=== PATIENT | male | born 1940 | race Caucasian/White ===

== ENCOUNTER 2017-08-19 13:58 | Emergency (ER) | payer MEDICARE ==
[~2017-08-19] VITALS: Ht 172.7 cm; Wt 81.6 kg
[~2017-08-19 13:58] MED LIST: ACHYD1T PO; ATOR80TA2 PO; CEFU800T34 PO; CPR500T PO; HYDR25TA4 PO; METO50TA2 PO; OMEG1CAP51 PO; PHEN100T26 PO; TOLTA4 PO; TOPI50TA2 PO
--- OUTSIDE RECORDS SUMMARY | 2017-08-19 14:15 | XMS REPORT ---
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 [id number] ALLERGIES No Known Allergies SOCIAL HISTORY Never Assessed PLAN OF CARE Activity Details Follow Up 6 Months Reason:Recall VITAL SIGNS Heart Rate 90 bpm 2016-07-19 Blood pressure systolic 135 mmHg 2016-07-19 Blood pressure diastolic 79 mmHg 2016-07-19 MEDICATIONS No Known Medications RESULTS No Results PROCEDURES Procedure Date Ordered Result Body Site PERIODIC ORAL EXAMINATION July 19, 2016 INTRAORL-PERIAPICAL 1 FILM 05783 July 19, 2016 TOPICAL FLUORIDE VARNISH July 19, 2016 PROPHYLAXIS - ADULT July 19, 2016 INTRAORL-PERIAPICAL EA ADD FILM July 19, 2016 INTRAORL-PERIAPICAL EA ADD FILM July 19, 2016 INTRAORL-PERIAPICAL EA ADD FILM July 19, 2016 INTRAORL-PERIAPICAL EA ADD FILM July 19, 2016 IMMUNIZATIONS No Known Immunizations MEDICAL (GENERAL) HISTORY Type Description Date Medical History Cancer Medical History Pneumonia Surgical History 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
--- OUTSIDE RECORDS SUMMARY | 2017-08-19 14:15 | XMS REPORT ---
Author Author MARY POTTER Organization [employer] Address Unknown Phone Unavailable Care Team Providers Care Electronic Assembly Name Role Phone MARY POTTER CP Unavailable Allergies, Adverse Reactions, Alerts Substance Reaction Event Type N.K.D.A. 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 Problem Urinary tract infection, site not specified 599.0 Active Problem Encounter for dental examination Z01.20 Active Assessment Dental examination Z01.20 Active Medications No Known Medications Procedures Procedure Coding System Code Date APPLICATION DESENZT MEDICAMENT CPT-4 D9910 Mar 16, 2015 INTRAORL-PERIAPICAL 1 FILM 66868 CPT-4 D0220 Mar 16, 2015 LTD ORAL EVALUATION - PROBLEM FOCUS CPT-4 D0140 Mar 16, 2015 BITEWING - SINGLE FILM CPT-4 D0270 Mar 16, 2015 Vital Signs Date/Time: Mar 16, 2015 Blood Pressure Diastolic 72 mmHg Blood Pressure Systolic 120 mmHg Results No Known Results Summary Purpose [employer] Submission
--- OUTSIDE RECORDS SUMMARY | 2017-08-19 14:15 | XMS REPORT ---
Author Author JACQUELINE MARTINEZ [facility] [employer] Address Unknown Phone Unavailable Care Team Providers Care Picking Supervisor Name Role Phone JACQUELINE MARTINEZ CP Unavailable Allergies, Adverse Reactions, Alerts Substance Reaction Event Type N.K.D.A. 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 Problem Urinary tract infection, site not specified 599.0 Active Problem Encounter for dental examination Z01.20 Active Assessment Encounter for dental examination Z01.20 Active Medications Medication Code System Code Instructions Start Date End Date Status Dosage halobetasol topical NDC 0 0.05 % August 13, 2013 1 ivanna by Topical route 2 times per day for 10 day(s) Cipro NDC [address]-26 500 mg November 04, 2012 1 tablet by Oral route every 12 hours for 10 day(s) Procedures Procedure Coding System Code Date BITEWINGS - TWO FILMS CPT-4 D0272 Mar 16, 2015 PROPHYLAXIS - ADULT CPT-4 D1110 Mar 16, 2015 COMP ORAL EVALUATION - NEW/EST PT CPT-4 D0150 Mar 16, 2015 Results No Known Results Summary Purpose [employer] Submission
--- OUTSIDE RECORDS SUMMARY | 2017-08-19 14:16 | XMS REPORT ---
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 Unknown Non Drug Allergy May, Unknown SOCIAL HISTORY No smoking Hx information available PLAN OF CARE Activity Details Follow Up prn Reason:Restorative VITAL SIGNS Height 69 in 2016-05-25 Blood pressure systolic 142 mmHg 2016-05-25 Blood pressure diastolic 81 mmHg 2016-05-25 MEDICATIONS Unknown Medications RESULTS No Results PROCEDURES Procedure Date Ordered Related Diagnosis Body Site LTD ORAL EVALUATION - PROBLEM FOCUS May 25, 2016 INTRAORL-PERIAPICAL 1 FILM 13163 May 25, 2016 IMMUNIZATIONS No Known Immunizations
--- OUTSIDE RECORDS SUMMARY | 2017-08-19 14:16 | XMS REPORT | Continuity of Care Document ---
Author Author [facility] Address Unknown Phone Unavailable Allergies Active Description Code Type Severity Reaction Onset Reported/Identified Relationship to Patient Clinical Status Yes No Known Drug Allergies [id number] Drug Allergy Unknown N/A 11/11/2012 Medications There is no data. Problems Date Dx Coded Attending Type Code Diagnosis Diagnosed By 07/12/2010 465.9 UPPER RESPIRATORY INFECTION 07/12/2010 466.0 BRONCHITIS, ACUTE 07/12/2010 CHIRSTA MANDEL APRN R 465.9 UPPER RESPIRATORY INFECTION 07/12/2010 CHRISTA MANDEL APRN R 466.0 BRONCHITIS, ACUTE 08/23/2010 692.9 CONTACT DERMATITIS AND OTHER ECZEMA UNSPECIFIED CAUSE 08/23/2010 698.9 PRURITUS NOS 08/23/2010 CHRISTA MANDEL APRN R 692.9 CONTACT DERMATITIS AND OTHER ECZEMA UNSPECIFIED CAUSE 08/23/2010 KATHRINE MANDEL APRNINA R 698.9 PRURITUS NOS 03/14/2011 401.1 BENIGN ESSENTIAL HYPERTENSION 03/14/2011 782.1 RASH AND OTHER NONSPECIFIC SKIN ERUPTION 03/14/2011 CHRISTA MANDEL APRN R 401.1 BENIGN ESSENTIAL HYPERTENSION 03/14/2011 KATHRINE MANDEL APRNINA R 782.1 RASH AND OTHER NONSPECIFIC SKIN ERUPTION 11/04/2012 599.0 URINARY TRACT INFECTION SITE NOT SPECIFIED 11/04/2012 CHRISTA MANDEL APRN R 599.0 URINARY TRACT INFECTION SITE NOT SPECIFIED 11/15/2012 JAMES NEVAREZ, IRASEMA Da Silva Ot 276.8 11/15/2012 JAMES NEVAREZ, IRASEMA Da Silva Ot 300.00 11/15/2012 JAMES NEVAREZ, IRASEMA Da Silva Ot 584.9 11/15/2012 JAMES NEVAREZ, IRASEMA Da Silva Ot 595.9 11/15/2012 JAMES NEVAREZ, IRASEMA Da Silva Ot V10.46 08/13/2013 CHRISTA MANDEL APRN R 708.0 ALLERGIC URTICARIA 06/17/2014 JOHN NEVAREZ, JEFFERSON Celis Ot 389.9 06/17/2014 JOHN NEVAREZ, JEFFERSON Celis Ot 716.90 06/17/2014 JOHN NEVAREZ, JEFFERSON S Ot 805.2 06/17/2014 JOHN NEVAREZ, JEFFERSON S Ot 805.4 06/17/2014 JOHN NEVAREZ, JEFFERSON S Ot 873.0 06/17/2014 JOHN NEVAREZ, JEFFERSON S Ot 959.01 06/17/2014 JOHN NEVAREZ, JEFFERSON S Ot E849.0 06/17/2014 JOHN NEVAREZ, JEFFERSON S Ot E884.9 06/17/2014 JOHN NEVAREZ, JEFFERSON S Ot V10.46 06/17/2014 JOHN NEVAREZ, JEFFERSON S Ot V45.77 Procedures Code [place] [address] UA LONG DIP 11/04/2012 Results There is no data. Encounters ACCT No. Visit Date/Time Discharge Status Pt. Type Provider Facility Loc./Unit Complaint [id number] 08/13/2013 09:59:00 08/13/2013 23:59:59 CLS Outpatient CHRISTA MANDEL APRN [id number] 11/04/2012 10:58:00 Document Registration [id number] 01/30/2017 09:10:00 01/30/2017 23:59:59 CLS Outpatient KRISHNA EDWARDS [facility] [id number] 06/15/2014 11:37:00 06/17/2014 15:14:00 DIS Inpatient JOHN NEVAREZ, JEFFERSON Celis [facility] [id number] 11/11/2012 13:07:00 11/15/2012 12:50:00 DIS Inpatient JAMES NEVAREZ, IRASEMA Da Silva [address]
[2017-08-19 14:18] VITALS: BP 159/83
[2017-08-19] MEDS ORDERED: NS IV 500 ML 500 ML IV ONE (14:20)
--- NOTE | 2017-08-19 14:43 | ED Neurological Problem ---
General Chief Complaint: General Problems/Pain Stated Complaint: LOW BP Nursing Triage Note: patient presented via private vehicle today with complaints of low blood pressure and generalized weakness. Pt. family advises the last known well time for the patient was last night. Nursing Sepsis Screen: No Definite Risk Source: patient, family, EMS Exam Limitations: no limitations History of Present Illness Date Seen by Provider: Aug 19, 2017 Time Seen by Provider: 14:20 Initial Comments Here with family who report that he is not acting her today. Apparently had low blood pressure this morning. Normally has hypertension. Last known well time was last night. He was confused when he woke up this morning. No report of any injury or recent illness. Apparently he was fine last night. Patient admits to not feeling well but is otherwise not very helpful in the history. Timing/Duration: other (10 p.m. last night last known well time.) Severity: moderate Associated Symptoms: confusion, No fever/chills, No nausea/vomiting, No slurred speech, weakness Allergies and Home Medications Allergies Coded Allergies: No Known Drug Allergies (Unverified , 08/19/17) Home Medications Atorvastatin Calcium 80 Mg Tablet, 40 MG PO HS, (Reported) TAKES 1/2 (80MG) TABLET Docosahexanoic Acid/Epa 1 Cap Capsule, 1,000 MG PO DAILY, (Reported) Hydrochlorothiazide 25 Mg Tablet, 12.5 MG PO DAILY, (Reported) TAKES 1/2 (25MG) TABLET Hydrocodone Bit/Acetaminophen 1 Ea Tab, 1-2 EA PO Q4H PRN for PAIN Prescribed by: KAT YEPEZ on 06/17/14 4129 Metoprolol Tartrate 50 Mg Tablet, 25 MG PO BID, (Reported) TAKES 1/2 (50MG) TABLET Topiramate 50 Mg Tablet, 50 MG PO HS, (Reported) Patient Home Medication List Home Medication List Reviewed: Yes Review of Systems Constitutional: see HPI, No chills, No fever Eyes: No Symptoms Reported Ears, Nose, Mouth, Throat: no symptoms reported Respiratory: No short of breath, No wheezing Cardiovascular: No chest pain, No edema Gastrointestinal: No abdominal pain, No nausea, No vomiting Genitourinary: no symptoms reported Musculoskeletal: No back pain, muscle weakness Skin: no symptoms reported Psychiatric/Neurological: See HPI, Weakness Endocrine: No Symptoms Reported All Other Systems Reviewed Negative Unless Noted: Yes Past Odcvujs-Sfastf-Ctqmie Hx Patient Social History Alcohol Use: Denies Use Recreational Drug Use: No Smoking Status: Never a Smoker 2nd Hand Smoke Exposure: No Recent Foreign Travel: No Contact w/Someone Who Travel: No Recent Infectious Disease Expo: No Physical Abuse: No Sexual Abuse: No Immunizations Up To Date Date of Pneumonia Vaccine: May 14, 2011 Date of Influenza Vaccine: Feb 11, 2014 Seasonal Allergies Seasonal Allergies: No Past Medical History Surgeries: Yes (liver resection, prostatectomy, vagotomy) Respiratory: No Cardiac: Yes Hypertension Neurological: No Reproductive Disorders: No Sexually Transmitted Disease: No HIV/AIDS: No Benign Prostatic Hyperpl, Kidney Stones Gastrointestinal: No Musculoskeletal: No Arthritis Endocrine: No Hearing Impairment: Bilateral Hearing Aide Cancer: Yes Prostate Psychosocial: No Nursing Suicide Risk Score: 0 Integumentary: No Blood Disorders: No Adverse Reaction/Blood Tranf: No Family Medical History Reviewed Nursing Family Hx No Pertinent Family Hx Physical Exam Vital Signs Vital Signs - First Documented Capillary Refill : Less Than 3 Seconds General Appearance: WD/WN, no apparent distress HEENT: PERRL/EOMI, pharynx normal Neck: full range of motion, supple Respiratory: lungs clear, normal breath sounds Cardiovascular: regular rate, rhythm, no murmur Gastrointestinal: non tender, soft Back: normal inspection, no CVA tenderness, no vertebral tenderness Extremities: non-tender, normal inspection Neurologic/Psychiatric: alert, oriented x 3 Crainal Nerves: normal hearing, normal speech, PERRL Coordination/Gait: normal finger to nose Motor/Sensory: no sensory deficit, no pronator drift, other (mild global weakness but no focal weakness.) Skin: normal color, warm/dry Focused Exam Lactate Level 08/19/17 15:29: Lactic Acid Level 0.75 Lactic Acid Level Laboratory Tests Test 08/19/17 15:29 Lactic Acid Level 0.75 MMOL/L (0.50-2.00) Progress/Results/Core Measures Lab Results Laboratory Tests Test 08/19/17 15:00 08/19/17 15:29 08/19/17 15:35 Range/Units Glucometer 119 H 70-110 MG/DL White Blood Count 10.3 4.3-11.0 10^3/uL Red Blood Count 4.64 4.35-5.85 10^6/uL Hemoglobin 13.4 13.3-17.7 G/DL Hematocrit 40 40-54 % Mean Corpuscular Volume 87 80-99 FL Mean Corpuscular Hemoglobin 29 25-34 PG Mean Corpuscular Hemoglobin Concent 33 32-36 G/DL Red Cell Distribution Width 14.0 10.0-14.5 % Platelet Count 217 130-400 10^3/uL Mean Platelet Volume 10.3 7.4-10.4 FL Neutrophils (%) (Auto) 85 H 42-75 % Lymphocytes (%) (Auto) 7 L 12-44 % Monocytes (%) (Auto) 6 0-12 % Eosinophils (%) (Auto) 1 0-10 % Basophils (%) (Auto) 1 0-10 % Neutrophils # (Auto) 8.8 H 1.8-7.8 X 10^3 Lymphocytes # (Auto) 0.8 L 1.0-4.0 X 10^3 Monocytes # (Auto) 0.6 0.0-1.0 X 10^3 Eosinophils # (Auto) 0.1 0.0-0.3 10^3/uL Basophils # (Auto) 0.1 0.0-0.1 10^3/uL Neutrophils % (Manual) 72 % Lymphocytes % (Manual) 3 % Monocytes % (Manual) 10 % Eosinophils % (Manual) 1 % Basophils % (Manual) 2 % Band Neutrophils 4 % Reactive Lymphocytes 8 % Poikilocytosis SLIGHT Stomatocytes SLIGHT Prothrombin Time 12.8 12.2-14.7 SEC INR Comment 1.0 0.8-1.4 Activated Partial Thromboplast Time 24 24-35 SEC D-Dimer 0.27 0.00-0.49 UG/ML Sodium Level 138 135-145 MMOL/L Potassium Level 3.9 3.6-5.0 MMOL/L Chloride Level 106 98-107 MMOL/L Carbon Dioxide Level 26 21-32 MMOL/L Anion Gap 6 5-14 MMOL/L Blood Urea Nitrogen 19 H 7-18 MG/DL Creatinine 0.84 0.60-1.30 MG/DL Estimat Glomerular Filtration Rate > 60 BUN/Creatinine Ratio 23 Glucose Level 150 H 70-105 MG/DL Lactic Acid Level 0.75 0.50-2.00 MMOL/L Calcium Level 9.6 8.5-10.1 MG/DL Total Bilirubin 0.9 0.1-1.0 MG/DL Aspartate Amino Transf (AST/SGOT) 27 5-34 U/L Alanine Aminotransferase (ALT/SGPT) 29 0-55 U/L Alkaline Phosphatase 59 40-136 U/L Troponin I < 0.30 <0.30 NG/ML Total Protein 6.5 6.4-8.2 GM/DL Albumin 4.1 3.2-4.5 GM/DL Urine Color YELLOW Urine Clarity CLEAR Urine pH 5 5-9 Urine Specific Oblong 1.025 H 1.016-1.022 Urine Protein NEGATIVE NEGATIVE Urine Glucose (UA) NEGATIVE NEGATIVE Urine Ketones NEGATIVE NEGATIVE Urine Nitrite NEGATIVE NEGATIVE Urine Bilirubin NEGATIVE NEGATIVE Urine Urobilinogen NORMAL NORMAL MG/DL Urine Leukocyte Esterase NEGATIVE NEGATIVE Urine RBC (Auto) NEGATIVE NEGATIVE Urine RBC NONE /HPF Urine WBC RARE /HPF Urine Squamous Epithelial Cells RARE /HPF Urine Renal Epithelial Cells NONE /HPF Urine Crystals PRESENT H /LPF Urine Calcium Oxalate Crystals LARGE H /LPF Urine Bacteria NEGATIVE /HPF Urine Casts PRESENT /LPF Urine Hyaline Casts 0-2 H /LPF Urine White Blood Cell Casts RARE H /LPF Urine Mucus SMALL H /LPF Urine Culture Indicated NO My Orders Orders - ZEUS MARMOLEJO MD Ekg Tracing (08/19/17 14:09) Cbc With Automated Diff (08/19/17 14:19) Protime With Inr (08/19/17 14:19) Partial Thromboplastin Time (08/19/17 14:19) Comprehensive Metabolic Panel (08/19/17 14:19) Fibrin Degradation Products (08/19/17 14:19) Troponin I (08/19/17 14:19) Ua Culture If Indicated (08/19/17 14:19) Chest 1 View, Ap/Pa Only (08/19/17 14:19) Nothing By Mouth (08/19/17 Dinner) Accucheck Stat ONCE (08/19/17 14:19) Saline Lock/Iv-Start (08/19/17 14:19) Vital Signs Stroke Patient Q15M (08/19/17 14:19) Ct Head Wo-R/O Stroke (08/19/17 14:19) O2 (08/19/17 14:19) Intake & Output 06,14,22 (08/19/17 14:19) Monitor-Rhythm Ecg Trace Only (08/19/17 14:19) Dysphagia Screening Tool (08/19/17 14:19) Lactic Acid Analyzer (08/19/17 14:19) Blood Culture (08/19/17 14:19) Saline Lock/Iv-Start (08/19/17 14:20) Ns Iv 500 Ml (Sodium Chloride 0.9%) (08/19/17 14:20) Manual Differential (08/19/17 15:29) Medications Given in ED Current Medications Medications Dose Ordered Sig/Chinedu Route Start Time Stop Time Status Last Admin Dose Admin Sodium Chloride 500 ml @ 0 mls/hr Q0M ONCE IV 08/19/17 14:20 08/19/17 14:21 DC 08/19/17 14:46 0 MLS/HR Vital Signs/I&O 08/19/17 08/19/17 14:18 14:18 Temp 98.6 Pulse 69 69 Resp 14 14 B/P (MAP) 159/63 (95) 159/83 Pulse Ox 97 97 O2 Delivery Room Air Blood Pressure Mean: 95 Progress Note : Progress Note Seen and evaluated. IV, labs, EKG, chest x-ray, CT head, normal saline 1 L bolus and UA ordered. Stroke Scale 0 as done by me but does appear confused and weak. No indication of TPA as this exceeds the 3 hour pati and the 4.5 hour pati and no findings on stroke scale. Monitor patient. 1600: Patient is improving with fluids. [address] evidence of stroke and no other evidence of significant infection at this time. Despite the significant risk initially, patient appears to be doing better. I did review his previous history and do note that he had previous hospitalization for urinary tract infection but this does not appear to be the case currently and UA studies only indicate probable dehydration with the elevated specific gravity. I did discuss with him and the family about hydration and hydration status. He does drink a lot of coffee and we did discuss changing to decaf at least partially and adding some additional fluid in his diet. Patient states that he would. [facility]. He does have overall normal counts but following CBC results would be beneficial. Discharged home with return precautions. Patient and family verbalize understanding instructions and agreement with plan. Initial ECG Impression Date: Aug 19, 2017 Initial ECG Impression Time: 14:04 Initial ECG Rate: 70 Initial ECG Rhythm: Normal Sinus Comment Sinus rhythm with left atrial antibiotic. No evidence of ST elevation DE. Normal axis. Interpreted by me. Diagonstic Imaging: CT Plain Films/CT/US/NM/MRI: head Comments VIA [facility]. [place], [place] NAME: SAVANNAH ZIMMER [facility] REC#: [id number] PT STATUS: REG ER : 1940 PHYSICIAN: ZEUS MARMOLEJO MD ADMIT DATE: 08/19/17/ER Draft Date of Exam:08/19/17 CT HEAD WO-R/O STROKE EXAMINATION: CT head without contrast. INDICATION: Low blood pressure and dizziness. Evaluate for stroke. Comparison made with MRI from June 12, 2014. FINDINGS: Age-appropriate global cerebral volume loss is demonstrated. There are some patchy regions of hypoattenuation within the deep white matter compatible with chronic microvascular disease. By CT imaging, there is no evidence of a territorial loss of beltran-white differentiation or abnormal hypodensity within the basal ganglia. There is no acute hemorrhage. There is no mass effect or shift. There is no hydrocephalus. The basilar cisterns appear patent. No focal abnormal hyperdense blood vessel evident. There are some atherosclerotic disease within the vessels at the skull base. The mastoids appear clear. Paranasal sinuses clear. Orbital contents unremarkable. IMPRESSION: 1. Age-appropriate global volume loss with some chronic microvascular changes and white matter. By CT imaging there is no evidence to suggest territorial loss of beltran-white differentiation or hypodensity within the basal ganglia. No acute ischemia evident by CT. There is no hemorrhage, mass effect or hydrocephalus. Dictated on workstation # [id number] Dict: 08/19/17 1430 Trans: 08/19/17 1449 [facility] [id number] Interpreted by: DAYANA TREJO MD Electronically signed by: Diagonstic Imaging: Xray Plain Films/CT/US/NM/MRI: chest Comments NAME: SAVANNAH ZIMMER [facility] REC#: [id number] PT STATUS: REG ER : 1940 PHYSICIAN: ZEUS MARMOLEJO MD ADMIT DATE: 08/19/17/ER Signed Date of Exam: 08/19/17 CHEST 1 VIEW, AP/PA ONLY Portable chest compared to prior study from 06/11/2014. INDICATION: FINDINGS: As on the prior examination, there is elevation of the right hemidiaphragm. There are some chronic interstitial changes present within the lungs but no evidence to suggest new alveolar consolidation or overt failure. Enlargement of the cardiac silhouette unchanged. There is no pneumothorax. Some calcification along the left chest wall related to known calcified pleural plaque is stable. IMPRESSION: 1. Enlarged cardiac silhouette with chronic interstitial lung disease. There is stable elevation of the right hemidiaphragm. No significant interval change is demonstrated when compared to the prior study. No acute cardiopulmonary process evident. Dictated by: Dictated on workstation # [id number] Dict: 08/19/17 1432 Trans: 08/19/17 1444 Interpreted by: DAYANA TREJO MD Electronically signed by: DAYANA TREJO MD 08/19/17 1444 Departure Impression Primary Impression: Dehydration Additional Impression: Confusion Disposition: 01 HOME, SELF-CARE Condition: Improved Departure-Patient Inst. Decision time for Depature: 16:33 Referrals: [facility] [place] Primary Care Physician Patient Instructions: Dehydration, Adult (DC), Delirium (Confusion) (DC), Generalized Weakness (DC) Add. Discharge Instructions: All discharge instructions reviewed with patient and/or family. Voiced understanding. Continue medications as directed. Increase your fluid intake and/or switch at least part of your coffee intake to decaf coffee. Take your lab results to your [facility] for further evaluation including the complete blood count. This might need to be rechecked again or compared to your typical blood counts. Return for worse pain, fever, vomiting, weakness, breathing problems or other concerns as needed. ZEUS MARMOLEJO MD Aug 19, 2017 14:43
--- NOTE | 2017-08-19 14:50 | Diagnostic Imaging Report ---
EXAMINATION: CT head without contrast. INDICATION: Low blood pressure and dizziness. Evaluate for stroke. Comparison made with MRI from June 12, 2014. FINDINGS: Age-appropriate global cerebral volume loss is demonstrated. There are some patchy regions of hypoattenuation within the deep white matter compatible with chronic microvascular disease. By CT imaging, there is no evidence of a territorial loss of beltran-white differentiation or abnormal hypodensity within the basal ganglia. There is no acute hemorrhage. There is no mass effect or shift. There is no hydrocephalus. The basilar cisterns appear patent. No focal abnormal hyperdense blood vessel evident. There are some atherosclerotic disease within the vessels at the skull base. The mastoids appear clear. Paranasal sinuses clear. Orbital contents unremarkable. IMPRESSION: 1. Age-appropriate global volume loss with some chronic microvascular changes and white matter. By CT imaging there is no evidence to suggest territorial loss of beltran-white differentiation or hypodensity within the basal ganglia. No acute ischemia evident by CT. There is no hemorrhage, mass effect or hydrocephalus. Dictated by: Dictated on workstation # [id number]
[2017-08-19 15:40] LABS: BASOPHILS # (AUTO) 0.1 10^3/uL (0.0-0.1); BASOPHILS % (AUTO) 1 % (0-10); EOSINOPHILS # (AUTO) 0.1 10^3/uL (0.0-0.3); EOSINOPHILS % (AUTO) 1 % (0-10); HEMATOCRIT 40 % (40-54); HEMOGLOBIN 13.4 G/DL (13.3-17.7); LYMPHOCYTES # (AUTO) 0.8 X 10^3 (1.0-4.0); LYMPHOCYTES % (AUTO) 7 % (12-44); MEAN CORPUSCULAR HEMOGLOBIN 29 PG (25-34); MEAN CORPUSCULAR HGB CONC 33 G/DL (32-36); MEAN CORPUSCULAR VOLUME 87 FL (80-99); MEAN PLATELET VOLUME 10.3 FL (7.4-10.4); MONOCYTES # (AUTO) 0.6 X 10^3 (0.0-1.0); MONOCYTES % (AUTO) 6 % (0-12); NEUTROPHILS # (AUTO) 8.8 X 10^3 (1.8-7.8); NEUTROPHILS % (AUTO) 85 % (42-75); PLATELET COUNT 217 10^3/uL (130-400); RED BLOOD COUNT 4.64 10^6/uL (4.35-5.85); WHITE BLOOD COUNT 10.3 10^3/uL (4.3-11.0)
[2017-08-19 15:46] LABS: BILIRUBIN,URINE NEGATIVE (NEGATIVE); CLARITY,URINE CLEAR; COLOR,URINE YELLOW; GLUCOSE, URINE (UA) NEGATIVE (NEGATIVE); KETONES,URINE NEGATIVE (NEGATIVE); LEUKOCYTE ESTERASE ,URINE NEGATIVE (NEGATIVE); NITRITE,URINE NEGATIVE (NEGATIVE); PH,URINE 5 (5-9); PROTEIN,URINE NEGATIVE (NEGATIVE); UROBILINOGEN,URINE NORMAL (NORMAL)
[2017-08-19 15:54] LABS: PROTHROMBIN TIME PATIENT 12.8 SEC (12.2-14.7)
[2017-08-19 15:56] LABS: FIBRIN DEGRADATION PRODUCTS 0.27 UG/ML (0.00-0.49)
[2017-08-19 16:04] LABS: ALANINE AMINOTRANSFERASE 29 U/L (0-55); ALBUMIN 4.1 GM/DL (3.2-4.5); ALKALINE PHOSPHATASE 59 U/L (40-136); BILIRUBIN,TOTAL 0.9 MG/DL (0.1-1.0); BUN/CREATININE RATIO 23; CALCIUM 9.6 MG/DL (8.5-10.1); CARBON DIOXIDE 26 MMOL/L (21-32); CHLORIDE 106 MMOL/L (98-107); CREATININE SERUM 0.84 MG/DL (0.60-1.30); GFR ESTIMATED > 60; GLUCOSE 150 MG/DL (70-105); POTASSIUM 3.9 MMOL/L (3.6-5.0); SODIUM 138 MMOL/L (135-145); TOTAL PROTEIN 6.5 GM/DL (6.4-8.2)
[2017-08-19 16:04] LABS: BACTERIA,URINE NEGATIVE /HPF; CALCIUM OXALATE CRYSTALS,UR LARGE /LPF; HYALINE CASTS, URINE 0-2 /LPF; SQUAMOUS EPITHELIAL CELL,UR RARE /HPF; WBC,URINE RARE /HPF; WHITE BLOOD CELL CASTS, URINE RARE /LPF
[2017-08-19 16:24] LABS: BAND NEUTROPHILS 4 %; BASOPHILS % (MANUAL) 2 %; EOSINOPHILS % (MANUAL) 1 %; LYMPHOCYTES % (MANUAL) 3 %; MONOCYTES % (MANUAL) 10 %; NEUTROPHILS % (MANUAL) 72 %; POIKILOCYTOSIS SLIGHT; REACTIVE LYMPHOCYTES 8 %; STOMATOCYTES SLIGHT
[2017-08-19 16:46] VITALS: BP 174/96
== END 2017-08-19 16:46 | disposition home or self-care (01) ==
LOC: EDUNIT# 13:58 → ER 13:59
DX: E86.0 Dehydration (principal); R41.0 Disorientation, unspecified; N40.0 Benign prostatic hyperplasia without lower urinary tract symptoms; I10 Essential (primary) hypertension; Z87.442 Personal history of urinary calculi; Z97.4 Presence of external hearing-aid; Z90.79 Acquired absence of other genital organ(s); Z85.46 Personal history of malignant neoplasm of prostate
CPT/HCPCS: 36415; 70450; 71045; 80053; 81000; 82962; 83605; 84484; 85007; 85027; 85379; 85610; 85730; 87040; 93005; 93041

== ENCOUNTER 2018-11-12 09:05 | Emergency (ER) | payer MEDICARE | END 2018-11-12 09:16 | disposition left against medical advice (07) | LOC: EDUNIT# 09:05 → ER 09:06 | DX: S05.90XA Unspecified injury of unspecified eye and orbit, initial encounter (principal); W19.XXXA Unspecified fall, initial encounter ==

== ENCOUNTER 2019-12-10 11:06 | Emergency (ER) | payer MEDICARE ==
[~2019-12-10] VITALS: Ht 167.7 cm; Wt 60.0 kg
[2019-12-10] MEDS ORDERED: HEParin (CENTRAL IV FLUSH) 500 UNIT/5 ML SYR IV ONE (11:15)
[2019-12-10] MEDS ORDERED: LACTATED RINGERS 1,000 ML IV SCH (11:15)
--- NOTE | 2019-12-10 11:15 | ED General ---
General Stated Complaint: WEAKNESS Source of Information: Patient, EMS Exam Limitations: No Limitations History of Present Illness Date Seen by Provider: Dec 10, 2019 Time Seen by Provider: 11:14 Initial Comments To ER with reports of generalized weakness. He completed chemotherapy and radiation at [facility] with Dr. Thomas on November 24 for right lung cancer. He has not been eating or drinking for the past few weeks and getting progressively more weak. Today the tried to get him out of bed and move him to the couch, he collapsed in doing so. He didn't strike his head but no loss of consciousness and adamant that he has no head or neck pain. On arrival he is alert and oriented, states that he feels okay just a little weak and would like to go home. Timing/Duration: 1-2 Days Severity: Moderate Associated Systoms: Weakness Allergies and Home Medications Allergies Coded Allergies: No Known Drug Allergies (Unverified , 08/19/17) Home Medications Atorvastatin Calcium 80 Mg Tablet, 40 MG PO HS, (Reported) TAKES 1/2 (80MG) TABLET Docosahexanoic Acid/Epa 1 Cap Capsule, 1,000 MG PO DAILY, (Reported) Hydrochlorothiazide 25 Mg Tablet, 12.5 MG PO DAILY, (Reported) TAKES 1/2 (25MG) TABLET Hydrocodone Bit/Acetaminophen 1 Ea Tab, 1-2 EA PO Q4H PRN for PAIN Prescribed by: KAT YEPEZ on 06/17/14 1439 Metoprolol Tartrate 50 Mg Tablet, 25 MG PO BID, (Reported) TAKES 1/2 (50MG) TABLET Topiramate 50 Mg Tablet, 50 MG PO HS, (Reported) Patient Home Medication List Home Medication List Reviewed: Yes Review of Systems Review of Systems Constitutional: see HPI EENTM: see HPI Respiratory: no symptoms reported Cardiovascular: no symptoms reported Genitourinary: no symptoms reported Musculoskeletal: no symptoms reported Skin: no symptoms reported Psychiatric/Neurological: No Symptoms Reported Hematologic/Lymphatic: No Symptoms Reported Immunological/Allergic: no symptoms reported Past Wxcfnpg-Ogdfmu-Yrbnwq Hx Patient Social History 2nd Hand Smoke Exposure: No Immunizations Up To Date Date of Pneumonia Vaccine: May 14, 2011 Date of Influenza Vaccine: Feb 11, 2014 Seasonal Allergies Seasonal Allergies: No Past Medical History Surgeries: Yes (liver resection, prostatectomy, vagotomy) Respiratory: No Cardiac: Yes Hypertension Neurological: No Reproductive Disorders: No Sexually Transmitted Disease: No HIV/AIDS: No Benign Prostatic Hyperpl, Kidney Stones Gastrointestinal: No Musculoskeletal: No Arthritis Endocrine: No Hearing Impairment: Bilateral Hearing Aide Cancer: Yes Prostate Psychosocial: No Integumentary: No Blood Disorders: No Adverse Reaction/Blood Tranf: No Family Medical History No Pertinent Family Hx Physical Exam Vital Signs Vital Signs - First Documented 12/10/19 11:06 Temp 36.5 Pulse 114 Resp 14 B/P (MAP) 132/80 (97) Pulse Ox 95 O2 Delivery Room Air Capillary Refill : Height, Weight, BMI Height: 5'8.00" Weight: 180lbs. oz. 81.484553ac; BMI Method:Estimated General Appearance: No Apparent Distress, WD/WN, Chronically ill (frail) Eyes: Bilateral Eye Normal Inspection, Bilateral Eye PERRL, Bilateral Eye EOMI Respiratory: Normal Breath Sounds, No Accessory Muscle Use, No Respiratory Distress Cardiovascular: Regular Rate, Rhythm, Normal Peripheral Pulses Gastrointestinal: Normal Bowel Sounds, Non Tender, Soft Extremity: Normal Capillary Refill, Normal Inspection Neurologic/Psychiatric: Alert, Oriented x3 Skin: Normal Color, Warm/Dry Progress/Results/Core Measures Suspected Sepsis SIRS Temperature: Pulse: Respiratory Rate: Laboratory Tests 12/10/19 11:11: White Blood Count 6.9 Blood Pressure / Mean: Laboratory Tests 12/10/19 11:11: Creatinine 0.66, Platelet Count 340, Total Bilirubin 0.8 Results/Orders Lab Results Laboratory Tests Test 12/10/19 11:11 Range/Units White Blood Count 6.9 4.3-11.0 10^3/uL Red Blood Count 3.51 L 4.35-5.85 10^6/uL Hemoglobin 9.7 L 13.3-17.7 G/DL Hematocrit 30 L 40-54 % Mean Corpuscular Volume 84 80-99 FL Mean Corpuscular Hemoglobin 28 25-34 PG Mean Corpuscular Hemoglobin Concent 33 32-36 G/DL Red Cell Distribution Width 17.5 H 10.0-14.5 % Platelet Count 340 130-400 10^3/uL Mean Platelet Volume 8.4 7.4-10.4 FL Neutrophils (%) (Auto) 82 H 42-75 % Lymphocytes (%) (Auto) 8 L 12-44 % Monocytes (%) (Auto) 10 0-12 % Eosinophils (%) (Auto) 0 0-10 % Basophils (%) (Auto) 0 0-10 % Neutrophils # (Auto) 5.7 1.8-7.8 X 10^3 Lymphocytes # (Auto) 0.5 L 1.0-4.0 X 10^3 Monocytes # (Auto) 0.7 0.0-1.0 X 10^3 Eosinophils # (Auto) 0.0 0.0-0.3 10^3/uL Basophils # (Auto) 0.0 0.0-0.1 10^3/uL Neutrophils % (Manual) 80 % Lymphocytes % (Manual) 6 % Monocytes % (Manual) 8 % Metamyelocytes % 2 % Band Neutrophils 4 % Poikilocytosis SLIGHT Anisocytosis SLIGHT Microcytosis SLIGHT Spherocytes SLIGHT Sodium Level 139 135-145 MMOL/L Potassium Level 2.5 *L 3.6-5.0 MMOL/L Chloride Level 100 98-107 MMOL/L Carbon Dioxide Level 29 21-32 MMOL/L Anion Gap 10 5-14 MMOL/L Blood Urea Nitrogen 10 7-18 MG/DL Creatinine 0.66 0.60-1.30 MG/DL Estimat Glomerular Filtration Rate > 60 BUN/Creatinine Ratio 15 Glucose Level 152 H 70-105 MG/DL Calcium Level 8.4 L 8.5-10.1 MG/DL Corrected Calcium 9.2 8.5-10.1 MG/DL Magnesium Level 1.3 L 1.6-2.4 MG/DL Total Bilirubin 0.8 0.1-1.0 MG/DL Aspartate Amino Transf (AST/SGOT) 15 5-34 U/L Alanine Aminotransferase (ALT/SGPT) 11 0-55 U/L Alkaline Phosphatase 69 40-136 U/L Total Protein 5.6 L 6.4-8.2 GM/DL Albumin 3.0 L 3.2-4.5 GM/DL My Orders Orders - DORINA IBANEZ APRN Cbc With Automated Diff (12/10/19 11:11) Comprehensive Metabolic Panel (12/10/19 11:11) Chest 1 View, Ap/Pa Only (12/10/19 11:11) Ct Head Wo (12/10/19 11:11) Ua Culture If Indicated (12/10/19 11:11) Ekg Tracing (12/10/19 11:11) Lactated Ringers (Lr 1000 Ml Iv Solution (12/10/19 11:15) Heparin (Central Iv Flush) (Heparin (Erika (12/10/19 11:15) Manual Differential (12/10/19 11:11) Potassium Chloride (Tablet) (Klor Con Ta (12/10/19 12:00) Magnesium (12/10/19 11:50) Potassium Cl 10meq/50ml Ivpb (Kcl 10 Meq (12/10/19 12:00) Magnesium 1 Gm/100 Ml Ivpb (Magnesium [place] (12/10/19 13:00) Medications Given in ED Current Medications Medications Dose Ordered Sig/Chinedu Route Start Time Stop Time Status Last Admin Dose Admin Potassium Chloride 40 meq ONCE ONCE PO 12/10/19 12:00 12/10/19 12:01 DC 12/10/19 12:15 40 MEQ Potassium Chloride 50 ml @ 50 mls/hr ONCE ONCE IV 12/10/19 12:00 12/10/19 12:59 12/10/19 12:15 50 MLS/HR Vital Signs/I&O 12/10/19 11:06 Temp 36.5 Pulse 114 Resp 14 B/P (MAP) 132/80 (97) Pulse Ox 95 O2 Delivery Room Air Capillary Refill : Diagnostic Imaging Diagonstic Imaging: Xray Comments NAME: SAVANNAH ZIMMER [facility] REC#: [id number] PT STATUS: REG ER : 1940 PHYSICIAN: DORINA IBANEZ APRN ADMIT DATE: 12/10/19/ER Draft Date of Exam:12/10/19 CHEST 1 VIEW, AP/PA ONLY INDICATION: Weakness. COMPARISON: 06/11/2014. FINDINGS: Single frontal radiographic view of the chest was obtained and demonstrates persistent asymmetric elevation of right hemidiaphragm. There has however been interval development of pleural-based opacity of the right apex. Thickening measures approximately 2 cm. Left lung remains clear. There is no large effusion on the left. No pneumothorax is seen on either side. Right upper extremity PICC line is noted with tip in the SVC. Cardiac silhouette and pulmonary vasculature are within normal limits. Osseous structures show no acute abnormalities. IMPRESSION: 1. Interval development of significant pleural-based opacity within the right apex. Findings could be on the basis of loculated apical effusion, although apical mass should be considered. Correlation with postcontrast CT chest is advised. Dictated on workstation # [id number] Dict: 12/10/19 1138 Trans: 12/10/19 1143 [facility] [id number] Interpreted by: CARRIE METZGER MD Electronically signed by: Departure Communication (Admissions) Patient is receiving 40 mEq of potassium orally and 10 mEq IV, his magnesium is low salt give him 2 g of magnesium IV. I would like to admit him but due to being a [facility] patient he would need to go to a [facility]. I spoke with the [facility] in [place], they state that in order to keep him here they would have to do a transfer request and ultimately declined the transfer. If they didn't declined the transfer then he would need to be transferred there. Patient states he does not want to go there. As such we'll give magnesium in the emergency room and discharged home. Impression Primary Impression: Acute hypokalemia Additional Impressions: Weakness generalized Cancer of right lung Hypomagnesemia Disposition: 01 HOME, SELF-CARE Condition: Stable Departure-Patient Inst. Decision time for Depature: 12:44 Referrals: NO,LOCAL PHYSICIAN (PCP/Family) Primary Care Physician Patient Instructions: Generalized Weakness Add. Discharge Instructions: 1. Continue with potassium replacement. Start the magnesium supplement as well. Follow-up with your doctor as scheduled and return to ER for any worsening. Scripts Magnesium Oxide (Magnesium Oxide) 400 Mg Tablet 400 MG PO BID, #20 TAB Prov: DORINA IBANEZ APRN 12/10/19 DORINA IBANEZ APRN Dec 10, 2019 11:15
[2019-12-10 11:23] LABS: BASOPHILS % (AUTO) 0 % (0-10); EOSINOPHILS % (AUTO) 0 % (0-10); HEMATOCRIT 30 % (40-54); HEMOGLOBIN 9.7 G/DL (13.3-17.7); LYMPHOCYTES # (AUTO) 0.5 X 10^3 (1.0-4.0); LYMPHOCYTES % (AUTO) 8 % (12-44); MEAN CORPUSCULAR HEMOGLOBIN 28 PG (25-34); MEAN CORPUSCULAR HGB CONC 33 G/DL (32-36); MEAN CORPUSCULAR VOLUME 84 FL (80-99); MEAN PLATELET VOLUME 8.4 FL (7.4-10.4); MONOCYTES # (AUTO) 0.7 X 10^3 (0.0-1.0); MONOCYTES % (AUTO) 10 % (0-12); NEUTROPHILS # (AUTO) 5.7 X 10^3 (1.8-7.8); NEUTROPHILS % (AUTO) 82 % (42-75); PLATELET COUNT 340 10^3/uL (130-400); RED CELL DISTRIBUTION WIDTH 17.5 % (10.0-14.5); WHITE BLOOD COUNT 6.9 10^3/uL (4.3-11.0)
[2019-12-10 11:36] LABS: CHLORIDE 100 MMOL/L (98-107); SODIUM 139 MMOL/L (135-145)
[2019-12-10 11:38] LABS: CALCIUM 8.4 MG/DL (8.5-10.1)
[2019-12-10 11:39] LABS: GLUCOSE 152 MG/DL (70-105); TOTAL PROTEIN 5.6 GM/DL (6.4-8.2)
[2019-12-10 11:40] LABS: CARBON DIOXIDE 29 MMOL/L (21-32)
[2019-12-10 11:41] LABS: BILIRUBIN,TOTAL 0.8 MG/DL (0.1-1.0)
[2019-12-10 11:42] LABS: ALKALINE PHOSPHATASE 69 U/L (40-136); CREATININE SERUM 0.66 MG/DL (0.60-1.30); GFR ESTIMATED > 60
[2019-12-10 11:43] LABS: BUN/CREATININE RATIO 15
--- NOTE | 2019-12-10 11:44 | Diagnostic Imaging Report ---
INDICATION: Weakness. COMPARISON: 06/11/2014. FINDINGS: Single frontal radiographic view of the chest was obtained and demonstrates persistent asymmetric elevation of right hemidiaphragm. There has however been interval development of pleural-based opacity of the right apex. Thickening measures approximately 2 cm. Left lung remains clear. There is no large effusion on the left. No pneumothorax is seen on either side. Right upper extremity PICC line is noted with tip in the SVC. Cardiac silhouette and pulmonary vasculature are within normal limits. Osseous structures show no acute abnormalities. IMPRESSION: 1. Interval development of significant pleural-based opacity within the right apex. Findings could be on the basis of loculated apical effusion, although apical mass should be considered. Correlation with postcontrast CT chest is advised. Dictated by: Dictated on workstation # [id number]
[2019-12-10 11:45] LABS: ALANINE AMINOTRANSFERASE 11 U/L (0-55)
[2019-12-10 11:50] LABS: POTASSIUM 2.5 MMOL/L (3.6-5.0)
[2019-12-10 11:58] LABS: ANISOCYTOSIS SLIGHT; BAND NEUTROPHILS 4 %; LYMPHOCYTES % (MANUAL) 6 %; METAMYELOCYTES % 2 %; MICROCYTOSIS SLIGHT; MONOCYTES % (MANUAL) 8 %; NEUTROPHILS % (MANUAL) 80 %; POIKILOCYTOSIS SLIGHT; SPHEROCYTES SLIGHT
[2019-12-10] MEDS ORDERED: POTASSIUM CL 10MEQ/50ML IVPB 50 ML IV ONE (12:00)
[2019-12-10] MEDS ORDERED: KCL 10 MEQ TAB (MICRO K) PO ONE (12:00)
--- NOTE | 2019-12-10 12:03 | Diagnostic Imaging Report ---
CLINICAL INDICATION: Patient with weakness. No other issues. EXAM: Axial CT scan of the brain without IV contrast with coronal and sagittal reformatted images. Auto Exposure Controls were utilized during the CT exam to meet ALARA standards for radiation dose reduction. COMPARISON: Head CT without contrast dated 08/14/2017. FINDINGS: There is skull streak artifact which obscures portions of the posterior fossa and skull base. There is no evidence of acute cerebral infarct, intracranial hemorrhage, or gross mass effect. The brain parenchymal volume appears appropriate for patient's age. Again seen multiple patchy areas of low-attenuation white matter changes involving both cerebral hemispheres, likely representing chronic small vessel ischemic disease. There is normal beltran-white matter distinction. There is no significant midline shift or herniation. There is no evidence of hydrocephalus. The basal cisterns are unremarkable. The skull, extracranial soft tissue, and orbits are unremarkable. The paranasal sinuses are unremarkable. Temporal bones show no significant abnormality. IMPRESSION: 1: There is no evidence of acute intracranial process. 2: Age-related brain parenchymal changes including chronic small vessel ischemic disease. Dictated by: Dictated on workstation # [id number]
[2019-12-10] MEDS ORDERED: MAGN400T50 PO (12:55)
[2019-12-10] MEDS: MAGNESIUM 1 GM/100 ML IVPB 100 ML IV SCH ×2 (13:11→13:45)
[2019-12-10 14:15] VITALS: BP 131/79
== END 2019-12-10 14:16 | disposition home or self-care (01) ==
LOC: EDUNIT# 11:06 → ER 11:08
DX: C34.91 Malignant neoplasm of unspecified part of right bronchus or lung (principal); E87.6 Hypokalemia; E83.42 Hypomagnesemia; I10 Essential (primary) hypertension; Z85.46 Personal history of malignant neoplasm of prostate
CPT/HCPCS: 36415; 70450; 71045; 80053; 83735; 85007; 85027; 93005